=== PATIENT | male | born 1965 | race African-American/Black ===

== ENCOUNTER 2019-12-04 09:19 | Emergency (ER) | payer SELFPAY ==
[2019-12-04 10:20] LABS: ABSOLUTE EOSINOPHILS # (AUTO) 0.4 10^3/uL (0.0-0.6); ABSOLUTE LYMPHOCYTES (AUTO) 1.7 10^3/uL (0.5-4.7); ABSOLUTE MONOCYTES (AUTO) 0.6 10^3/uL (0.1-1.4); ABSOLUTE NEUT (AUTO) 3.5 10^3/uL (1.7-8.2); BASOPHILS % (AUTO) 0.7 % (0-2); EOSINOPHILS % (AUTO) 6.9 % (0-6); HEMATOCRIT 47.3 % (37.9-51.0); HEMOGLOBIN 16.4 g/dL (13.5-17.0); LYMPHOCYTES % (AUTO) 26.8 % (13-45); MEAN CORPUSCULAR HEMOGLOBIN 32.7 pg (27.0-33.4); MEAN CORPUSCULAR HGB CONC 34.7 g/dL (32.0-36.0); MEAN CORPUSCULAR VOLUME 94 fl (80-97); PLATELET COUNT 286 10^3/uL (150-450); RED BLOOD COUNT 5.02 10^6/uL (4.35-5.55); SEGMENTED NEUTROPHILS % (AUTO) 56.6 % (42-78); TOTAL CELLS COUNTED % (AUTO) 100 %; WHITE BLOOD COUNT 6.2 10^3/uL (4.0-10.5)
[2019-12-04 10:25] LABS: INTERNATIONAL RATION (INR) 1.01; PROTHROMBIN TIME 13.3 SEC (11.4-15.4)
[2019-12-04 10:39] LABS: ALKALINE PHOSPHATASE 63 U/L (38-126); ANION GAP 5 (5-19); ASPARTATE AMINO TRANSFERASE 21 U/L (17-59); BILIRUBIN,DIRECT 0.2 mg/dL (0.0-0.4); BILIRUBIN,TOTAL 0.6 mg/dL (0.2-1.3); BLOOD UREA NITROGEN 17 mg/dL (7-20); CALCIUM 9.8 mg/dL (8.4-10.2); CARBON DIOXIDE 26 mmol/L (22-30); CHLORIDE 105 mmol/L (98-107); GLUCOSE 107 mg/dL (75-110); POTASSIUM 4.6 mmol/L (3.6-5.0); TOTAL PROTEIN 7.2 g/dL (6.3-8.2)
--- NOTE | 2019-12-04 11:08 | RADIOLOGY REPORT (SQ) ---
EXAM DESCRIPTION: ELBOW LEFT OVER 2 VIEWS IMAGES COMPLETED DATE/TIME: 12/04/2019 10:58 am REASON FOR STUDY: swelling COMPARISON: None. NUMBER OF VIEWS: Four views. TECHNIQUE: AP, lateral, and both oblique radiographic images acquired of the left elbow. LIMITATIONS: None. FINDINGS: MINERALIZATION: Normal. BONES: No acute fracture or dislocation. No worrisome bone lesions. Mild osteophytosis at the proxi mal ulna and medial epicondyles. JOINT: No effusion. SOFT TISSUES: Soft tissue swelling posterior to the olecranon. No radiopaque foreign body. OTHER: No other significant finding. IMPRESSION: 1. No evidence of acute bony abnormality. 2. Soft tissue swelling posterior to the olecranon suggestive of olecranon bursitis. TECHNICAL DOCUMENTATION: JOB ID: [id number] 2010 [email or web address]- All Rights Reserved Reading location - IP/workstation name: [email or web address]
--- NOTE | 2019-12-04 12:12 | ER Document Report ---
Entered by CARMEN MELTON SCRIBE 12/04/19 1115 Acting as scribe for:MARIZA DUNBAR MD ED General - General Chief Complaint: Leg Swelling Stated Complaint: RIGHT LEG PAIN, SWELLING Time Seen by Provider: 12/04/19 11:03 Primary Care Provider: [facility] [Provider Group] - Follow up as needed Mode of Arrival: Ambulatory Information source: Patient Notes: This 54 year old male patient presents to the emergency department today with complaints of right lower extremity swelling for a few weeks. Patient states that this morning when he woke up he had pain for the first time so he decided to come in to have it evaluated. Patient states he has iced the area but the swelling has remained present. Patient states that the area of swelling was at first just his right knee but now it is the entire right lower extremity. Patient denies any injury or trauma to the leg. TRAVEL OUTSIDE OF THE [place] IN LAST 30 DAYS: No - Related Data Allergies/Adverse Reactions: No Known Allergies Allergy (Verified 07/12/14 13:17) Past Medical History - General Information source: Patient - Social History Smoking Status: Current Every Day Smoker Cigarette use (# per day): Yes - 1 ppd Frequency of alcohol use: Social Drug Abuse: Marijuana Lives with: Family Family History: Reviewed & Not Pertinent, Malignancy Patient has homicidal ideation: No - Medical History Medical History: Negative Surgical Hx: Negative - Immunizations Immunizations up to date: No Hx Diphtheria, Pertussis, Tetanus Vaccination: No Review of Systems - Review of Systems Constitutional: No symptoms reported EENT: No symptoms reported Cardiovascular: No symptoms reported Respiratory: No symptoms reported Gastrointestinal: See HPI, Other - right inguinal hernia, chronic Genitourinary: No symptoms reported Male Genitourinary: No symptoms reported Musculoskeletal: See HPI, Other - RLE pain/swelling. Left elbow swelling since August Skin: No symptoms reported Hematologic/Lymphatic: No symptoms reported Neurological/Psychological: No symptoms reported -: Yes All other systems reviewed and negative Physical Exam - Vital signs Vitals: Temp Pulse Resp BP Pulse Ox 98.5 F 67 18 161/97 H 99 12/04/19 09:25 12/04/19 09:25 12/04/19 09:25 12/04/19 09:25 12/04/19 09:25 - Notes Notes: Physical Exam: General: Alert, appears well. HEENT: Normocephalic. Atraumatic. PERRL. Extraocular movements intact. Oropharynx clear. Neck: Supple. Non-tender. Respiratory: No respiratory distress. Clear and equal breath sounds bilaterally. Cardiovascular: Regular rate and rhythm. Abdominal: Along inguinal ligament there is a 7cm x 2cm hernia which is non- tender, unable to determine if this is just fat or if it there is bowel as well, has been present for quite some time per history. No distension. Normal Bowel Sounds. Back: No gross abnormalities. Extremities: Moves all four extremities. Upper extremities: Left olecranon bursa is inflamed but not tender Lower extremities: The right knee is swollen but it is not tender to palpation and there is no knee joint or patella involvement. There is tenderness with palpation over the right popliteal fossa without swelling. Right lower extremity is edematous with associated calf tenderness on palpation. There is no calf firmness. Neurological: Normal cognition. AAOx4. Normal speech. Psychological: Normal affect. Normal Mood. Skin: Warm. Dry. Normal color. Course - Vital Signs Vital signs: Temp Pulse Resp BP Pulse Ox 98.5 F 67 18 161/97 H 99 12/04/19 09:25 12/04/19 09:25 12/04/19 09:25 12/04/19 09:25 12/04/19 09:25 - Laboratory Result Diagrams: 12/04/19 09:56 12/04/19 09:56 Laboratory results interpreted by me: 12/04/19 12/04/19 12/04/19 09:56 09:56 09:56 Eos % (Auto) 6.9 H D-Dimer 0.58 H Sodium 136.0 L - Diagnostic Test Radiology reviewed: Reports reviewed - Venous Doppler is negative for DVT. There is possibly a small Rivera's cyst in the right popliteal fossa. Left elbow x-ray does not show bony abnormalities. There is swelling consistent with an olecranon bursitis. Discharge - Discharge Clinical Impression: Right leg swelling, Olecranon bursitis of left elbow Rivera's cyst of knee Qualifiers: Laterality: right Qualified Code(s): M71.21 - Synovial cyst of popliteal space [Rivera], right knee Condition: Stable Disposition: HOME, SELF-CARE Additional Instructions: Rivera's Cyst: A Rivera's cyst is a sack of fluid behind the knee. These cysts are common in people with arthritis or old knee injuries. Fluid in the knee joint creates a bulging sack in the "capsule" surrounding the joint. The cyst may start to hurt after activity such as squatting, running, or stair-climbing. Fluid trapped in this sack causes pain and swelling. The swelling from a Rivera's cyst tends to spread down the leg. The lower leg can become red and warm. Rest your knee. Avoid activities such as squatting, lifting, climbing, and running. A knee brace may help you rest the knee. If the pain began suddenly while using the leg, use cold packs for the first two days to reduce pain and swelling. If the knee has been painful for a few days, use warm packs. Anti- inflammatory medicine is often prescribed. Once the pain has improved, gradually return to activity. Exercises to strengthen the quadriceps muscle can make the knee more stable, but you must be careful not to irritate the cyst while exercising. Call the doctor or return if you have increasing swelling or redness, fever, chills, chest pain, or shortness of breath. Olecranon Bursitis: You have olecranon bursitis. This is an inflammation of a fluid pouch (bursa) found over the tip of the elbow. This is usually due to repeated minor irritation or pressure directly on the bursa. On occasion, the bursitis can be due to infection (your doctor has checked for this). Sometimes the doctor decides to remove the fluid from the bursa with a needle. This may be done to check for infection or to ease the pressure ca used by the fluid. The usual treatment is rest, local warmth, (or cold if the bursitis is caused by an acute injury), and antiinflammatory medication. Occasionally, an injection of cortisone is necessary. This type of bursitis can become very red and swollen WITHOUT any infection being present. However if pain increases significantly, if the swelling and redness greatly increase, or if you develop fever, you should call the doctor or return for re-examination. The venous Doppler exam of your leg did not show any blood clots. It did show what appears to be a small Rivera's cyst behind your right knee. A Rivera's cyst will cause the knee to swell some, and can cause the leg to swell quite a bit. Your left elbow shows evidence of an olecranon bursitis, which is inflammation and excessive fluid buildup in a small fluid filled sac over the tip of your elbow. The management of both of these problems initially is anti-inflammatory medication, and limiting activity. Elevate your right leg as much as possible to help keep the swelling down. A good anti-inflammatory medication would be Aleve [address] Herrera at [facility] for an appointment to evaluate and manage your olecranon bursitis and probable Rivera's cyst. RETURN TO THE EMERGENCY ROOM IF ANY NEW OR WORSENING SYMPTOMS. Referrals: [facility] [Provider Group] - Follow up as needed I personally performed the services described in the documentation, reviewed and edited the documentation which was dictated to the scribe in my presence, and it accurately records my words and actions.
--- NOTE | 2019-12-04 12:41 | RADIOLOGY REPORT (SQ) ---
EXAM DESCRIPTION: VENOUS UNILATERAL LOWER IMAGES COMPLETED DATE/TIME: 12/04/2019 12:17 pm REASON FOR STUDY: Right leg and posterior knee swelling COMPARISON: None. TECHNIQUE: Dynamic and static mcbride scale and color images acquired of the right leg venous system. S elected spectral images acquired with additional compression and augmentation maneuvers. The contrala teral common femoral vein and saphenofemoral junction were also imaged. Images stored on PACS. LIMITATIONS: None. FINDINGS: COMMON FEMORAL: Normal phasicity, compression and augmentation. No visualized echogenic ma terial on mcbride scale. No defects on color images. FEMORAL: Normal compression and augmentation. No visualized echogenic material on mcbride scale. No defe cts on color images. POPLITEAL: Normal compression, augmentation. No visualized echogenic material on mcbride scale. No defec ts on color images. CALF VESSELS: Normal compression, augmentation. No visualized echogenic material on mcbride scale. No de fects on color images. GSV and SSV: Normal compression, augmentation. No visualized echogenic material on mcbride scale. No def ects on color images. ANY DEEP VENOUS INSUFFICIENCY: Not evaluated. ANY EVIDENCE OF POPLITEAL CYST: There may be a small Rivera's cyst. OTHER: No other significant finding. CONTRALATERAL COMMON FEMORAL VEIN AND SAPHENOFEMORAL JUNCTION: Normal phasicity, compression and augmentation. No visualized echogenic material on mcbride scale. No de fects on color images. IMPRESSION: NO EVIDENCE DVT OR SVT IN THE RIGHT LEG. TECHNICAL DOCUMENTATION: JOB ID: [id number] 2010 [employer]- All Rights Reserved Reading location - IP/workstation name: [email or web address]
[2019-12-04 13:46] VITALS: BP 159/83
== END 2019-12-04 13:33 | disposition home or self-care (01) ==
LOC: ER 09:19
DX: M71.21 Synovial cyst of popliteal space [Baker], right knee (principal); M70.22 Olecranon bursitis, left elbow; M79.89 Other specified soft tissue disorders; M79.604 Pain in right leg; K40.90 Unilateral inguinal hernia, without obstruction or gangrene, not specified as recurrent; F17.210 Nicotine dependence, cigarettes, uncomplicated
CPT/HCPCS: 36415; 80053; 85025; 85379; 85610; 93971; 99284